=== PATIENT | female | born 1985 | race Caucasian/White ===

== ENCOUNTER 2017-02-16 15:23 | Emergency (ER) | payer OTHER ==
[~2017-02-16 15:23] MED LIST: NORCO 5-325 TA1 EACH PO
== END 2017-02-16 17:05 | disposition home or self-care (01) ==
LOC: ER1 15:23
DX: J02.9 Acute pharyngitis, unspecified (principal); J40 Bronchitis, not specified as acute or chronic; F17.200 Nicotine dependence, unspecified, uncomplicated
CPT/HCPCS: 71020; 84703; 99283